=== PATIENT | male | born 1980 | race Asian ===

== ENCOUNTER 2016-06-15 11:48 | Inpatient (IN) | payer MEDICARE, MEDICAID ==
[~2016-06-15] VITALS: Ht 167.6 cm; Wt 96.0 kg
[2016-06-15] MEDS ORDERED: SODIUM CHLORIDE FLUSH 10ML SYR IVF ONE (12:30)
[2016-06-15] MEDS ORDERED: ONDANSETRON 2MG/ML, 2ML IVPush ONE (12:30)
[2016-06-15] MEDS ORDERED: SODIUM CHLORIDE 0.9% 1,000ML IVBOLUS ONE (12:30)
[2016-06-15] MEDS ORDERED: MECLIZINE CHEWABLE 25 MG TAB PO ONE (12:30)
[2016-06-15] MEDS ORDERED: HYDR-3307 PO (12:40)
[2016-06-15] MEDS ORDERED: MECL-76 PO (12:40)
[2016-06-15] MEDS ORDERED: ERLO100T PO (12:40)
[2016-06-15] MEDS ORDERED: PLEASE ENTER ALLERGIES MC SCH ×2 (13:00)
[2016-06-15 13:05] LABS: ASPARTATE AMINO TRANSFERASE 19 U/L (15-37); BLOOD UREA NITROGEN 9 mg/dL (7-18)
[2016-06-15] MEDS ORDERED: ONDANSETRON 2MG/ML, 2ML ONE (13:21)
[2016-06-15] MEDS ORDERED: MECLIZINE CHEWABLE 25 MG TAB ONE (13:21)
[2016-06-15] MEDS ORDERED: SODIUM CHLORIDE 3% 500 ML IV PRN (17:00)
[2016-06-15] MEDS ORDERED: ASPIRIN 81 MG TABLET EC PO SCH (18:00)
[2016-06-15 18:44] LABS: BLOOD UREA NITROGEN 8 mg/dL (7-18)
[2016-06-15 20:00] VITALS: BP 126/75
[2016-06-15] MEDS ORDERED: morphine SULFATE 10 MG/ML, 1ML IVPush PRN (20:00)
[2016-06-15] MEDS ORDERED: HYDROcodone/APAP 10/325 MG TABLET ONE (20:04)
[2016-06-15] MEDS: HYDROcodone/APAP 10/325 MG TABLET PO PRN (20:05)
[2016-06-15] MEDS: ATORVASTATIN 40 MG TABLET PO SCH (21:08)
[2016-06-15] MEDS ORDERED: ACETAMINOPHEN 325 MG TABLET PO PRN (23:00)
[2016-06-15] MEDS: NS + 20MEQ KCL 1,000 ML IV SCH (23:22)
[2016-06-15 23:25] LABS: BLOOD UREA NITROGEN 7 mg/dL (7-18)
[2016-06-16] MEDS: MORPHINE SULFATE 4 MG/ML, 1ML IVPush PRN ×10 (03:16→23:08)
[2016-06-16 04:00] VITALS: BP 133/83
[2016-06-16 04:53] LABS: ASPARTATE AMINO TRANSFERASE 15 U/L (15-37); BLOOD UREA NITROGEN 7 mg/dL (7-18)
[2016-06-16] MEDS ORDERED: HYDROcodone/APAP 10/325 MG TABLET PO SCH (09:00)
[2016-06-16 11:14] LABS: BLOOD UREA NITROGEN 6 mg/dL (7-18)
[2016-06-16] MEDS ORDERED: SODIUM CHLORIDE 3% 500 ML IV PRN ×2 (17:00)
[2016-06-16 17:36] LABS: BLOOD UREA NITROGEN 7 mg/dL (7-18)
[2016-06-16] MEDS: ATORVASTATIN 40 MG TABLET PO SCH (20:18)
[2016-06-16] MEDS: NS + 20MEQ KCL 1,000 ML IV SCH (21:29)
[2016-06-16 21:52] LABS: BLOOD UREA NITROGEN 8 mg/dL (7-18)
[2016-06-17] MEDS: SODIUM CHLORIDE 3% 500 ML IV PRN ×4 (00:49→23:31)
[2016-06-17 01:13] LABS: BLOOD UREA NITROGEN 9 mg/dL (7-18)
[2016-06-17] MEDS: MORPHINE SULFATE 4 MG/ML, 1ML IVPush PRN ×5 (02:41→17:41)
[2016-06-17 05:00] VITALS: BP 125/89
[2016-06-17 06:11] LABS: BLOOD UREA NITROGEN 9 mg/dL (7-18)
[2016-06-17 10:17] LABS: BLOOD UREA NITROGEN 9 mg/dL (7-18)
[2016-06-17 14:28] LABS: BLOOD UREA NITROGEN 10 mg/dL (7-18)
[2016-06-17] MEDS: NS + 20MEQ KCL 1,000 ML IV SCH (17:41)
[2016-06-17 17:56] LABS: BLOOD UREA NITROGEN 11 mg/dL (7-18)
[2016-06-17] MEDS: ATORVASTATIN 40 MG TABLET PO SCH (20:33)
[2016-06-17 20:58] LABS: BLOOD UREA NITROGEN 10 mg/dL (7-18)
[2016-06-17] MEDS: HYDROcodone/APAP 10/325 MG TABLET PO PRN (21:50)
[2016-06-18] MEDS: HYDROcodone/APAP 10/325 MG TABLET PO PRN ×4 (02:25→20:21)
[2016-06-18 02:58] LABS: BLOOD UREA NITROGEN 10 mg/dL (7-18)
[2016-06-18 04:39] VITALS: BP 120/66
[2016-06-18 05:56] LABS: BLOOD UREA NITROGEN 9 mg/dL (7-18)
[2016-06-18 06:01] LABS: IS PT STATUS REG ER OR PRE ER? NO
[2016-06-18] MEDS: SODIUM CHLORIDE 3% 500 ML IV PRN ×3 (06:41→22:04)
[2016-06-18] MEDS ORDERED: morphine SULFATE 10 MG/ML, 1ML ONE (08:06)
[2016-06-18] MEDS: MORPHINE SULFATE 4 MG/ML, 1ML IVPush PRN ×2 (08:13→18:05)
[2016-06-18 12:03] LABS: BLOOD UREA NITROGEN 8 mg/dL (7-18)
[2016-06-18 16:28] LABS: BLOOD UREA NITROGEN 7 mg/dL (7-18)
[2016-06-18] MEDS: ATORVASTATIN 40 MG TABLET PO SCH (20:08)
[2016-06-18 20:47] LABS: BLOOD UREA NITROGEN 7 mg/dL (7-18)
[2016-06-19 00:31] LABS: BLOOD UREA NITROGEN 7 mg/dL (7-18)
[2016-06-19 04:00] VITALS: BP 121/71
[2016-06-19 04:57] LABS: BLOOD UREA NITROGEN 6 mg/dL (7-18)
[2016-06-19] MEDS: SODIUM CHLORIDE 3% 500 ML IV PRN ×3 (05:23→21:03)
[2016-06-19] MEDS ORDERED: POTASSIUM CHLORIDE 20 MEQ TAB.ER.PRT PO ONE (07:30)
[2016-06-19] MEDS: HYDROcodone/APAP 10/325 MG TABLET PO PRN ×3 (09:04→20:10)
[2016-06-19 11:06] LABS: BLOOD UREA NITROGEN 6 mg/dL (7-18)
[2016-06-19] MEDS: FLUDROCORTISONE 0.1 MG TABLET PO SCH ×2 (13:07→20:09)
[2016-06-19 15:22] LABS: BLOOD UREA NITROGEN 8 mg/dL (7-18)
[2016-06-19] MEDS: ATORVASTATIN 40 MG TABLET PO SCH (20:09)
[2016-06-19 20:53] LABS: BLOOD UREA NITROGEN 7 mg/dL (7-18)
[2016-06-19] MEDS: FAMOTIDINE 20 MG TABLET PO SCH (21:19)
[2016-06-20 00:45] LABS: BLOOD UREA NITROGEN 7 mg/dL (7-18)
[2016-06-20 04:00] VITALS: BP 106/68
[2016-06-20] MEDS: SODIUM CHLORIDE 3% 500 ML IV PRN ×3 (04:15→22:26)
[2016-06-20 05:32] LABS: BLOOD UREA NITROGEN 6 mg/dL (7-18)
[2016-06-20] MEDS: HYDROcodone/APAP 10/325 MG TABLET PO PRN ×5 (05:47→22:31)
[2016-06-20] MEDS ORDERED: MAGNESIUM SULFATE PMX 4GM/100M 100 ML IV ONE (08:30)
[2016-06-20] MEDS: FLUDROCORTISONE 0.1 MG TABLET PO SCH ×2 (08:39→21:29)
[2016-06-20] MEDS: FAMOTIDINE 20 MG TABLET PO SCH ×2 (08:39→21:29)
[2016-06-20] MEDS: POTASSIUM CHLORIDE 20 MEQ TAB.ER.PRT PO SCH ×2 (08:39→17:21)
[2016-06-20 12:08] LABS: BLOOD UREA NITROGEN 6 mg/dL (7-18)
[2016-06-20 16:47] LABS: ANA SCREEN NEGATIVE (Negative)
[2016-06-20 18:47] LABS: BLOOD UREA NITROGEN 7 mg/dL (7-18)
[2016-06-20] MEDS: ATORVASTATIN 40 MG TABLET PO SCH (21:29)
[2016-06-20] MEDS ORDERED: POTASSIUM CHLORIDE 20 MEQ TAB.ER.PRT PO ONE (22:00)
[2016-06-21 00:20] LABS: BLOOD UREA NITROGEN 10 mg/dL (7-18)
[2016-06-21 04:36] LABS: BLOOD UREA NITROGEN 8 mg/dL (7-18)
[2016-06-21] MEDS: SODIUM CHLORIDE 3% 500 ML IV PRN ×2 (05:18→13:34)
[2016-06-21] MEDS: FAMOTIDINE 20 MG TABLET PO SCH (08:43)
[2016-06-21] MEDS: POTASSIUM CHLORIDE 20 MEQ TAB.ER.PRT PO SCH ×2 (08:43→20:54)
[2016-06-21] MEDS: FLUDROCORTISONE 0.1 MG TABLET PO SCH ×2 (08:43→20:54)
[2016-06-21] MEDS: HYDROcodone/APAP 10/325 MG TABLET PO PRN ×4 (08:47→20:58)
[2016-06-21 14:25] LABS: BLOOD UREA NITROGEN 8 mg/dL (7-18)
[2016-06-21] MEDS ORDERED: ERLOTINIB 150 MG PO SCH (16:34)
[2016-06-21 17:48] LABS: BLOOD UREA NITROGEN 9 mg/dL (7-18)
[2016-06-21] MEDS: ATORVASTATIN 40 MG TABLET PO SCH (20:54)
[2016-06-21 23:37] LABS: BLOOD UREA NITROGEN 9 mg/dL (7-18)
[2016-06-22] MEDS: HYDROcodone/APAP 10/325 MG TABLET PO PRN ×5 (04:26→22:29)
[2016-06-22 05:05] LABS: BLOOD UREA NITROGEN 6 mg/dL (7-18)
[2016-06-22] MEDS: ERLOTINIB 150 MG HOMEMEDPO SCH (06:00)
[2016-06-22] MEDS: FLUDROCORTISONE 0.1 MG TABLET PO SCH ×2 (09:14→22:30)
[2016-06-22] MEDS: POTASSIUM CHLORIDE 20 MEQ TAB.ER.PRT PO SCH ×2 (09:14→17:29)
[2016-06-22] MEDS: SODIUM CHLORIDE 3% 500 ML IV PRN ×2 (09:14→18:38)
[2016-06-22 11:51] LABS: BLOOD UREA NITROGEN 6 mg/dL (7-18)
[2016-06-22] MEDS: SODIUM CHLORIDE 1 GM TABLET PO SCH ×3 (13:23→22:29)
[2016-06-22 17:27] LABS: BLOOD UREA NITROGEN 8 mg/dL (7-18)
[2016-06-22] MEDS: ATORVASTATIN 40 MG TABLET PO SCH (22:29)
[2016-06-22 23:40] LABS: BLOOD UREA NITROGEN 7 mg/dL (7-18)
[2016-06-23] MEDS: HYDROcodone/APAP 10/325 MG TABLET PO PRN ×4 (05:00→19:48)
[2016-06-23 05:15] LABS: BLOOD UREA NITROGEN 6 mg/dL (7-18)
[2016-06-23] MEDS: ERLOTINIB 150 MG HOMEMEDPO SCH (05:41)
[2016-06-23] MEDS: SODIUM CHLORIDE 3% 500 ML IV PRN (06:15)
[2016-06-23] MEDS: POTASSIUM CHLORIDE 20 MEQ TAB.ER.PRT PO SCH ×2 (09:18→16:07)
[2016-06-23] MEDS: FLUDROCORTISONE 0.1 MG TABLET PO SCH ×2 (09:18→19:46)
[2016-06-23] MEDS: SODIUM CHLORIDE 1 GM TABLET PO SCH ×3 (09:19→19:45)
[2016-06-23 12:35] LABS: BLOOD UREA NITROGEN 7 mg/dL (7-18)
[2016-06-23 17:18] VITALS: BP 111/76
[2016-06-23 17:20] LABS: BLOOD UREA NITROGEN 11 mg/dL (7-18)
[2016-06-23] MEDS: ATORVASTATIN 40 MG TABLET PO SCH (19:46)
[2016-06-23 23:47] LABS: BLOOD UREA NITROGEN 10 mg/dL (7-18)
[2016-06-24] MEDS: ERLOTINIB 150 MG HOMEMEDPO SCH (05:55)
[2016-06-24 05:58] VITALS: BP 107/70
[2016-06-24 07:05] LABS: BLOOD UREA NITROGEN 7 mg/dL (7-18)
[2016-06-24 07:13] VITALS: BP 101/65
[2016-06-24] MEDS ORDERED: MAGNESIUM SULFATE PMX 4GM/100M 100 ML IV ONE (07:30)
[2016-06-24] MEDS ORDERED: SODIUM CHLORIDE 3% 500 ML IV PRN ×2 (08:30)
[2016-06-24] MEDS: POTASSIUM CHLORIDE 20 MEQ TAB.ER.PRT PO SCH ×2 (08:52→18:33)
[2016-06-24] MEDS: FLUDROCORTISONE 0.1 MG TABLET PO SCH ×2 (08:54→21:33)
[2016-06-24] MEDS: SODIUM CHLORIDE 1 GM TABLET PO SCH ×3 (08:55→21:33)
[2016-06-24] MEDS: HYDROcodone/APAP 10/325 MG TABLET PO PRN ×2 (09:00→17:46)
[2016-06-24 11:06] LABS: BLOOD UREA NITROGEN 8 mg/dL (7-18)
[2016-06-24 13:56] VITALS: BP 99/65
[2016-06-24 18:55] VITALS: BP 131/85
[2016-06-24 19:38] LABS: BLOOD UREA NITROGEN 11 mg/dL (7-18)
[2016-06-24] MEDS: ATORVASTATIN 40 MG TABLET PO SCH (21:32)
[2016-06-24 23:57] LABS: BLOOD UREA NITROGEN 10 mg/dL (7-18)
[2016-06-25 03:12] VITALS: BP 115/73
[2016-06-25 05:03] LABS: BLOOD UREA NITROGEN 8 mg/dL (7-18)
[2016-06-25] MEDS: ERLOTINIB 150 MG HOMEMEDPO SCH (06:45)
[2016-06-25 07:30] VITALS: BP 108/70
[2016-06-25] MEDS: SODIUM CHLORIDE 1 GM TABLET PO SCH ×3 (08:53→20:30)
[2016-06-25] MEDS: POTASSIUM CHLORIDE 20 MEQ TAB.ER.PRT PO SCH ×2 (08:53→17:38)
[2016-06-25] MEDS: FLUDROCORTISONE 0.1 MG TABLET PO SCH ×2 (08:53→20:30)
[2016-06-25] MEDS: HYDROcodone/APAP 10/325 MG TABLET PO PRN ×3 (08:58→20:30)
[2016-06-25] MEDS ORDERED: MAGNESIUM SULFATE PMX 2GM/50ML 50 ML IV ONE (10:30)
[2016-06-25 10:54] LABS: BLOOD UREA NITROGEN 8 mg/dL (7-18)
[2016-06-25] MEDS: SODIUM CHLORIDE 3% 500 ML IV PRN ×2 (11:00→17:38)
[2016-06-25 13:32] VITALS: BP 113/64
[2016-06-25 17:29] LABS: BLOOD UREA NITROGEN 10 mg/dL (7-18)
[2016-06-25 20:23] VITALS: BP 106/72
[2016-06-25] MEDS: ATORVASTATIN 40 MG TABLET PO SCH (20:30)
[2016-06-25 23:25] LABS: BLOOD UREA NITROGEN 11 mg/dL (7-18)
[2016-06-26 02:43] VITALS: BP 103/68
[2016-06-26] MEDS: HYDROcodone/APAP 10/325 MG TABLET PO PRN ×2 (05:27→12:27)
[2016-06-26] MEDS: ERLOTINIB 150 MG HOMEMEDPO SCH (05:32)
[2016-06-26 06:40] LABS: BLOOD UREA NITROGEN 10 mg/dL (7-18)
[2016-06-26 07:25] VITALS: BP 114/79
[2016-06-26] MEDS: FLUDROCORTISONE 0.1 MG TABLET PO SCH (08:43)
[2016-06-26] MEDS: SODIUM CHLORIDE 1 GM TABLET PO SCH (08:43)
[2016-06-26] MEDS: POTASSIUM CHLORIDE 20 MEQ TAB.ER.PRT PO SCH (08:43)
[2016-06-26 11:37] LABS: BLOOD UREA NITROGEN 9 mg/dL (7-18)
[2016-06-26 13:37] VITALS: BP 116/82
[2016-06-26] MEDS ORDERED: POTA20TA6 PO (14:35)
[2016-06-26] MEDS ORDERED: FLUD0.1T PO (14:35)
[2016-06-26] MEDS ORDERED: ATOR40TA78 PO (14:35)
[2016-06-26] MEDS ORDERED: SODI1TAB PO (15:06)
[2016-06-26 16:23] LABS: BLOOD UREA NITROGEN 9 mg/dL (7-18)
== END 2016-06-26 16:29 | disposition home or self-care (01) | DRG 64 ==
LOC: ED 13:21 → EDIP 16:25 → CCU 17:21 → 3NW 06-23 15:24
PROVIDERS: ADMIT Hospitalist; ATTEND Hospitalist
PROC: 02HV33Z Insertion of Infusion Device into Superior Vena Cava, Percutaneous Approach (ICD-10-PCS; principal; 2016-06-16)
PROC: B548ZZA Ultrasonography of Superior Vena Cava, Guidance (ICD-10-PCS; 2016-06-16)
DX: I63.9 Cerebral infarction, unspecified (principal); G93.6 Cerebral edema; N13.30 Unspecified hydronephrosis; E87.1 Hypo-osmolality and hyponatremia; E87.2 Acidosis; G91.9 Hydrocephalus, unspecified; I42.9 Cardiomyopathy, unspecified; C34.90 Malignant neoplasm of unspecified part of unspecified bronchus or lung; M19.90 Unspecified osteoarthritis, unspecified site; E87.8 Other disorders of electrolyte and fluid balance, not elsewhere classified; I34.0 Nonrheumatic mitral (valve) insufficiency; Z96.643 Presence of artificial hip joint, bilateral; Z96.649 Presence of unspecified artificial hip joint; I65.02 Occlusion and stenosis of left vertebral artery; Z97.0 Presence of artificial eye; Z92.21 Personal history of antineoplastic chemotherapy
CPT/HCPCS: 36415; 36569; 70450; 70553; 71010; 76937; 77001; 80048; 80053; 80061; 83090; 83735; 84484; 85025; 85300; 85303; 85306; 85610; 85651; 85730; 86038; 86147; 87081; 93005; 93306; 93880; 93970; 96361; 96374; J2405; J3480; C1751; J2270; J3475; J7030